=== PATIENT | male | born 1995 | race Caucasian/White ===

== ENCOUNTER 2018-09-18 08:11 | Emergency (ER) | payer BC, OTHER ==
--- NOTE | 2018-09-18 08:26 | ER Report ---
History and Physical Time Seen By MD: 08:24 Hx. of Stated Complaint: INTERMITTENT LEFT SIDED NUMBNESS AND WEAKNESS. 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 Patient also states he had acute onset and still residual effect of numbness of the left upper and lower extremities he denies any focal neurological deficits otherwise he is denying any recent travel head or neck trauma E's denying any drug use no history of stroke or strokelike symptoms. On arrival to the emergency department he states that his symptoms are still consistent with right-sided visual acuity alterations in changes as well as left-sided upper and lower 70 numbness. REVIEW OF SYSTEMS: Respiratory: No cough, no dyspnea. Cardiovascular: No chest pain, no palpitations. Gastrointestinal: No vomiting, no abdominal pain. Musculoskeletal: No back pain. Remainder of the 14 system rev: Yes Allergies: Coded Allergies: No Known Drug Allergies (Unverified , 10/15/16) Home Meds No Active Prescriptions or Reported Meds Reviewed Nurses Notes: Yes Old Medical Records Reviewed: Yes Hx Substance Use Disorder: No Hx Alcohol Use: No Constitutional Physical Exam General Appearance: [The patient is alert, has no immediate need for airway protection and no current signs of toxicity.] [ ] Eyes: Pupils equal round and reactive to light visual acuity pending but bedside accommodations noted he does have equal and bilateral peripheral gaze both left and right both medial and lateral however visual acuity is significantly decreased in the right optic field Respiratory: Chest is non tender, lungs are clear to auscultation. Cardiac: regular rate and rhythm [ ] Gastrointestinal: Abdomen is soft and non tender, no masses, bowel sounds normal. Musculoskeletal: Neck: Neck is supple and non tender. Extremities have full range of motion and are non tender. Skin: No rashes or lesions. Neurologic examination patient GCS of 15 physical exam does show some mild decreased strength in the left foreign exchange trader on the left upper extremity otherwise unremarkable neurologically intact otherwise above for visual acuity issue DIFFERENTIAL DIAGNOSIS: After history and physical exam differential diagnosis was considered for stroke versus stroke mimic Medical Decision Making Data Points Laboratory Hematology Test 09/18/18 08:24 09/18/18 08:34 Whole Blood Glucose 103 mg/DL (75-110) Red Blood Count 6.03 M/uL (4.00-5.60) Mean Corpuscular Volume 82.9 fL (80.0-96.0) Mean Corpuscular Hemoglobin 28.8 pg (26.0-33.0) Mean Corpuscular Hemoglobin Concent 34.7 g/dL (32.0-36.0) Red Cell Distribution Width 13.5 % (11.5-14.5) Mean Platelet Volume 8.2 fL (7.2-11.1) Neutrophils (%) (Auto) 64.3 % (39.4-72.5) Lymphocytes (%) (Auto) 26.2 % (17.6-49.6) Monocytes (%) (Auto) 7.9 % (4.1-12.4) Eosinophils (%) (Auto) 0.9 % (0.4-6.7) Basophils (%) (Auto) 0.7 % (0.3-1.4) Nucleated RBC Relative Count (auto) 0.3 /100WBC Neutrophils # (Auto) 4.1 K/uL (2.0-7.4) Lymphocytes # (Auto) 1.7 K/uL (1.3-3.6) Monocytes # (Auto) 0.5 K/uL (0.3-1.0) Eosinophils # (Auto) 0.1 K/uL (0.0-0.5) Basophils # (Auto) 0.0 K/uL (0.0-0.1) Nucleated RBC Absolute Count (auto) 0.02 K/uL Prothrombin Time 14.8 seconds (12.0-14.4) Prothromb Time International Ratio 1.16 Activated Partial Thromboplast Time 28 seconds (23-35) Sodium Level 139 mmol/L (137-145) Potassium Level 3.5 mmol/L (3.5-5.0) Chloride Level 104 mmol/L (98-107) Carbon Dioxide Level 25 mmol/L (22-30) Blood Urea Nitrogen 10 mg/dl (9-21) Creatinine 1.00 mg/dl (0.66-1.25) Glomerular Filtration Rate Calc > 60.0 Random Glucose 127 mg/dl (75-110) Calcium Level 9.4 mg/dl (8.4-10.2) Total Bilirubin 1.4 mg/dl (0.2-1.3) Aspartate Amino Transf (AST/SGOT) 22 U/L (0-35) Alanine Aminotransferase (ALT/SGPT) 15 U/L (0-56) Alkaline Phosphatase 83 U/L (0-126) Troponin I < 0.012 ng/ml Total Protein 7.5 g/dl (6.3-8.2) Albumin 4.7 g/dl (3.5-5.0) Chemistry Test 09/18/18 08:24 09/18/18 08:34 Whole Blood Glucose 103 mg/DL (75-110) White Blood Count 6.4 k/uL (4.5-11.0) Red Blood Count 6.03 M/uL (4.00-5.60) Hemoglobin 17.4 g/dL (14.0-18.0) Hematocrit 50.0 % (42.0-52.0) Mean Corpuscular Volume 82.9 fL (80.0-96.0) Mean Corpuscular Hemoglobin 28.8 pg (26.0-33.0) Mean Corpuscular Hemoglobin Concent 34.7 g/dL (32.0-36.0) Red Cell Distribution Width 13.5 % (11.5-14.5) Platelet Count 185 K/uL (150-450) Mean Platelet Volume 8.2 fL (7.2-11.1) Neutrophils (%) (Auto) 64.3 % (39.4-72.5) Lymphocytes (%) (Auto) 26.2 % (17.6-49.6) Monocytes (%) (Auto) 7.9 % (4.1-12.4) Eosinophils (%) (Auto) 0.9 % (0.4-6.7) Basophils (%) (Auto) 0.7 % (0.3-1.4) Nucleated RBC Relative Count (auto) 0.3 /100WBC Neutrophils # (Auto) 4.1 K/uL (2.0-7.4) Lymphocytes # (Auto) 1.7 K/uL (1.3-3.6) Monocytes # (Auto) 0.5 K/uL (0.3-1.0) Eosinophils # (Auto) 0.1 K/uL (0.0-0.5) Basophils # (Auto) 0.0 K/uL (0.0-0.1) Nucleated RBC Absolute Count (auto) 0.02 K/uL Prothrombin Time 14.8 seconds (12.0-14.4) Prothromb Time International Ratio 1.16 Activated Partial Thromboplast Time 28 seconds (23-35) Glomerular Filtration Rate Calc > 60.0 Calcium Level 9.4 mg/dl (8.4-10.2) Total Bilirubin 1.4 mg/dl (0.2-1.3) Aspartate Amino Transf (AST/SGOT) 22 U/L (0-35) Alanine Aminotransferase (ALT/SGPT) 15 U/L (0-56) Alkaline Phosphatase 83 U/L (0-126) Troponin I < 0.012 ng/ml Total Protein 7.5 g/dl (6.3-8.2) Albumin 4.7 g/dl (3.5-5.0) Coagulation Test 09/18/18 08:34 Prothrombin Time 14.8 seconds Prothromb Time International Ratio 1.16 Activated Partial Thromboplast Time 28 seconds ED Course/Re-evaluation ED Course ED course medical decision making 22-year-old male who came here with strokelike symptoms has a history of neurological issues his initial head CT demonstrated what could possibly be a sinus thrombosis following up recommended by neurology as an MRI/MRA which was performed showed no abnormality believed neurological assessment that this was most likely related to dehydration fluid resuscitation initiated relatively unremarkable patient was discharge diagnosis dehydration Decision to Disposition Date: October 12, 2018 Decision to Disposition Time: 07:24 Depart Departure Latest Vital Signs Impression: Primary Impression: Dehydration Condition: Improved Disposition: HOME OR SELF-CARE New Scripts No Active Prescriptions or Reported Meds BHAKTI CALVO MD September 18, 2018 08:26
[2018-09-18] MEDS ORDERED: ONDANSETRON 4 MG/2 ML VIAL ONE (08:27)
[2018-09-18 08:45] LABS: PLATELET COUNT, AUTOMATED 185 K/uL (150-450)
--- NOTE | 2018-09-18 08:46 | EKG ---
FACILITY: [facility] PATIENT NAME: HENNA SUMMERS : [id number] MR: [id number] V: [id number] EXAM DATE: ORDERING PHYSICIAN: BHAKTI CALVO TECHNOLOGIST: MARINA Test Reason : POSS STROKE Blood Pressure : / mmHG Vent. Rate : 074 BPM Atrial Rate : 074 BPM P-R Int : 134 ms QRS Dur : 122 ms QT Int : 408 ms P-R-T Axes : 053 084 057 degrees QTc Int : 452 ms Normal sinus rhythm Normal ECG No previous ECGs available Confirmed by HERBER SMITH ([id number]) on 09/18/2018 6:33:32 PM Referred By: LUBNA Confirmed By:HERBER SMITH
[2018-09-18 08:50] LABS: INR 1.16
--- NOTE | 2018-09-18 08:53 | RADIOLOGY IMAGING REPORT ---
FACILITY: [facility] [place] PATIENT NAME: Devin Nunez : 1995 MR: [id number] V: [id number] EXAM DATE: ORDERING PHYSICIAN: BHAKTI CALVO TECHNOLOGIST: Location: [facility] [place] Patient: Devin Nunez : 1995 Visit/Account:[id number] Date of Sevice: 09/18/2018 EXAMINATION: CT head without IV contrast HISTORY: Stroke alert. Left-sided numbness, right eye vision changes, vomiting. COMPARISON: None. TECHNIQUE: Contiguous axial images were obtained from the skull base to the vertex without intraven ous contrast. Sagittal and coronal reformatted images are also submitted. One of the following dose optimization techniques was utilized in the performance of this exam: Autom ated exposure control; adjustment of the mA and/or kV according to the patient's size; or use of an i terative reconstruction technique. Specific details can be referenced in the facility's radiology C T exam operational policy. FINDINGS: Brain volume: Normal. Ventricles: Normal. Acute ischemic changes: There is no loss of rice-white differentiation to suggest acute ischemia. Hemorrhage: No acute intracranial hemorrhage. Masses/edema: None. Rice-white: Negative. White matter: Normal. Vessels: There is diffuse increased density in the superior sagittal sinus, straight sinus and bilat eral transverse sinuses, and a few cortical veins at the vertex. The density in these venous structu res is increased compared to the intracranial arterial structures. Extra-axial: Negative. Calvarium/scalp: Negative. Skull base/visualized face: Negative. Visualized sinuses/orbits: Mild nasal septal deviation to the right. IMPRESSION: 1. Increased density in the superior sagittal sinus, straight sinus, bilateral transverse sinuses an d a few cortical veins. Findings are concerning for dural sinus thrombosis and cortical vein thrombo sis. MRI brain without and with IV contrast and MRV head without contrast are recommended for furthe r evaluation. 2. No acute hemorrhage or intracranial mass lesion. No CT evidence of acute infarct. These findings were discussed with BHAKTI CALVO at 09/18/2018 8:45 AM. Report Dictated By: Nel Gregory MD at 09/18/2018 8:40 AM Report E-Signed By: Nel Gregory MD at 09/18/2018 8:48 AM [id number]
[2018-09-18] MEDS ORDERED: ONDANSETRON 4 MG/2 ML VIAL IVP ONE ×2 (09:10)
[2018-09-18] MEDS ORDERED: GADOBENATE 529MG/1ML 15ML VIAL IVP ONE (09:56)
[2018-09-18 11:15] VITALS: BP 122/86
--- NOTE | 2018-09-18 13:45 | RADIOLOGY IMAGING REPORT ---
FACILITY: PATIENT NAME: Devin Nunez : 1995 MR: [id number] V: [id number] EXAM DATE: ORDERING PHYSICIAN: BHAKTI CALVO TECHNOLOGIST: Location: [facility] - [place] Patient: Devin Nunez : 1995 Visit/Account:[id number] Date of Sevice: 09/18/2018 EXAMINATION: MRI brain without IV contrast MRI brain with IV contrast MRV of the head without IV contrast HISTORY: Abnormal head CT. Stroke alert with left-sided numbness, right eye vision changes, vomiti ng. Possible dural sinus and cerebral venous occlusion. COMPARISON: CT head from 09/18/2018. TECHNIQUE: Multi-planar, multi-sequence brain MRI was performed before and after IV gadolinium. 2D vyev-we-aygxvk angiography was performed in the coronal and axial planes of the intracranial venou s structures without IV gadolinium. CONTRAST: 15 mL of IV MultiHance gadolinium. FINDINGS: MRI BRAIN: Brain volume: Normal. Sagittal midline structures: Normal. Ventricles: Normal. Acute ischemic changes: No diffusion restriction present to suggest acute ischemia. Hemorrhage: No acute hemorrhage or hemosiderin staining. Masses/edema: None. Enhancement: No abnormal intracranial enhancement. Rice-white: Negative. White matter: Normal. Vessels: Flow voids of the dural venous sinuses and cortical veins at the vertex are normal, with no rmal enhancement. Extra-axial: None. Calvarium/scalp: Negative. Skull base: Negative. Visualized sinuses/orbits: Negative. Visualized upper neck: Negative. MRV HEAD: Dural venous sinuses: Normal flow related enhancement. Left transverse sinus is dominant with a smal ler right transverse sinus, a normal variant. Deep cerebral veins: Normal flow related enhancement. Superficial cortical veins: Normal flow related enhancement. Additional non-angiographic findings: None significant. IMPRESSION: 1. No acute infarct, hemorrhage or intracranial mass lesion. 2. No dural sinus thrombosis or cortical vein thrombosis. The increased density on head CT is likel y secondary to dehydration. A message regarding these findings was left with Theo for BHAKTI CALVO at 09/18/2018 11:05 AM. Report Dictated By: Nel Gregory MD at 09/18/2018 10:58 AM Report E-Signed By: Nel Gregory MD at 09/18/2018 11:10 AM WSN:[id number]
--- NOTE | 2018-09-18 13:45 | RADIOLOGY IMAGING REPORT ---
FACILITY: [facility] - [place] PATIENT NAME: Devin Nunez : 1995 MR: [id number] V: [id number] EXAM DATE: ORDERING PHYSICIAN: BHAKTI CALVO TECHNOLOGIST: Location: [facility] - [place], [place] Patient: Devin Nunez : 1995 Visit/Account:[id number] Date of Sevice: 09/18/2018 EXAMINATION: MRI brain without IV contrast MRI brain with IV contrast MRV of the head without IV contrast HISTORY: Abnormal head CT. Stroke alert with left-sided numbness, right eye vision changes, vomiti ng. Possible dural sinus and cerebral venous occlusion. COMPARISON: CT head from 09/18/2018. TECHNIQUE: Multi-planar, multi-sequence brain MRI was performed before and after IV gadolinium. 2D ypjx-uj-bhyqed angiography was performed in the coronal and axial planes of the intracranial venou s structures without IV gadolinium. CONTRAST: 15 mL of IV MultiHance gadolinium. FINDINGS: MRI BRAIN: Brain volume: Normal. Sagittal midline structures: Normal. Ventricles: Normal. Acute ischemic changes: No diffusion restriction present to suggest acute ischemia. Hemorrhage: No acute hemorrhage or hemosiderin staining. Masses/edema: None. Enhancement: No abnormal intracranial enhancement. Rice-white: Negative. White matter: Normal. Vessels: Flow voids of the dural venous sinuses and cortical veins at the vertex are normal, with no rmal enhancement. Extra-axial: None. Calvarium/scalp: Negative. Skull base: Negative. Visualized sinuses/orbits: Negative. Visualized upper neck: Negative. MRV HEAD: Dural venous sinuses: Normal flow related enhancement. Left transverse sinus is dominant with a smal ler right transverse sinus, a normal variant. Deep cerebral veins: Normal flow related enhancement. Superficial cortical veins: Normal flow related enhancement. Additional non-angiographic findings: None significant. IMPRESSION: 1. No acute infarct, hemorrhage or intracranial mass lesion. 2. No dural sinus thrombosis or cortical vein thrombosis. The increased density on head CT is likel y secondary to dehydration. A message regarding these findings was left with Theo for BHAKTI CALVO at 09/18/2018 11:05 AM. Report Dictated By: Nel Gregory MD at 09/18/2018 10:58 AM Report E-Signed By: Nel Gregory MD at 09/18/2018 11:10 AM WSN:[id number]
== END 2018-09-18 11:30 | disposition home or self-care (01) ==
LOC: ER 08:23
DX: E86.0 Dehydration (principal)
CPT/HCPCS: 36416; 70450; 70544; 70553; 82948; 84484; 85025; 85610; 85730; 93005; 96374; 99284; A9577; J2405; 82040; 82247; 82310; 82374; 82435; 82565; 82947; 84075; 84132; 84155; 84295; 84450; 84460; 84520